=== PATIENT | female | born 1965 | race Two or more races ===

== ENCOUNTER 2016-10-30 17:54 | Emergency (ER) | payer SELFPAY ==
[~2016-10-30] VITALS: Ht 162.6 cm; Wt 61.2 kg
[2016-10-30] MEDS ORDERED: Famotidine 20 MG/ 2ML VIAL IVP ONE (18:15)
[2016-10-30] MEDS ORDERED: Morphine Sulfate 4mg/ml Inj IVP ONE (18:15)
[2016-10-30 18:35] LABS: BASOPHILS % (AUTO) 0.8 % (0.0-2.0); EOSINOPHILS % (AUTO) 0.2 % (0.0-3.0); LYMPHOCYTES % (AUTO) 31.9 % (20.0-45.0); MEAN CORPUSCULAR HEMOGLOBIN 30.7 PG (27.0-31.0); MEAN CORPUSCULAR HGB CONC 35.6 G/DL (32.0-36.0); MEAN CORPUSCULAR VOLUME 86 FL (80-99); MEAN PLATELET VOLUME 8.5 FL (6.5-10.1); MONOCYTES % (AUTO) 5.5 % (1.0-10.0); NEUTROPHILS % (AUTO) 61.6 % (45.0-75.0); PLATELET COUNT 276 K/UL (150-450); RED BLOOD COUNT 4.65 M/UL (4.20-5.40); WHITE BLOOD COUNT 9.9 K/UL (4.8-10.8)
[2016-10-30 18:47] LABS: INR 0.9 (0.9-1.1); PROTHROMBIN TIME 9.7 SEC (9.30-11.50)
[2016-10-30 18:51] LABS: TROPONIN I < 0.30 ng/mL (<=0.30)
[2016-10-30 18:56] LABS: ALANINE AMINOTRANSFERASE 16 U/L (3-33); ALBUMIN/GLOBULIN RATIO 1.3 (1.0-2.7); ANION GAP 21 (5-15); ASPARTATE AMINO TRANSFERASE 13 U/L (5-40); CALCIUM 9.5 mg/dL (8.6-10.2); CARBON DIOXIDE 21 mEQ/L (20-30); CHLORIDE 95 mEQ/L (98-107); CREATININE 0.8 mg/dL (0.5-0.9); GLOMERULAR FILTRATION RATE > 60 mL/min (>60); HEMOLYSIS 7; LIPASE 31 U/L (< 60); POTASSIUM 3.4 mEQ/L (3.4-4.9); SODIUM 137 mEQ/L (135-145); TOTAL PROTEIN 7.6 g/dL (6.6-8.7)
[2016-10-30 19:53] VITALS: BP 132/75
[2016-10-30 20:12] LABS: APPEARANCE,URINE CLEAR; KETONES,URINE 1+ (NEGATIVE); LEUKOCYTE ESTERASE ,URINE 1+ (NEGATIVE); NITRITE,URINE NEGATIVE (NEGATIVE); PH,URINE 7 (4.5-8.0); PROTEIN,URINE 2+ (NEGATIVE); UROBILINOGEN,URINE NORMAL MG/DL (0.0-1.0)
[2016-10-30 20:20] LABS: RBC,URINE 0-2 /HPF (0 - 2); SQUAMOUS EPITHELIAL CELL,UR FEW /LPF (NONE/OCC)
[2016-10-30 20:21] LABS: BACTERIA,URINE OCCASIONAL /HPF
[2016-10-30] MEDS ORDERED: BENTYL10 MG ORAL (21:43)
[2016-10-30] MEDS ORDERED: ZOFRAN ODT4 MG ORAL (21:43)
[2016-10-30] MEDS ORDERED: NORCO 5-325 TA1 EACH ORAL (21:43)
[2016-10-30 21:54] VITALS: BP 135/71
[2016-10-30 21:55] VITALS: BP 135/71
--- NOTE | 2016-10-31 10:31 | Diagnostic Imaging Report ---
Indication: Abdominal pain Technique: Continuous helical transaxial imaging of the abdomen and pelvis was obtained from the lung bases to the pubic symphysis during intravenous contrast administration. Coronal 2-D reformats were also obtained. Study obtained in a Siemens sensation [address] Total Dose length Product (DLP): [address] Dose Index Volume (CTDIvol): 18 mGy Comparison: None Findings: Lung bases are clear. The liver, gallbladder and spleen, pancreas, adrenal glands, kidneys are unremarkable. Mild calcified plaques noted within the aorta. Mild distention of some fluid. Bowel demonstrated. Findings could be due to mild enteritis. These correlate clinically. The appendix is normal. The uterus is heterogeneous in appearance with slight bulky contour suggestive of underlying fibroids. No hydronephrosis demonstrated. Urinary bladder is nondistended. There is a defect of the pars interarticularis at L5 bilaterally. Mild anterior subluxation of L5 relative to S1 noted. In pression: Suspect mild enteritis. Please correlate clinically. Suggestion of uterine fibroid. Ultrasound evaluation may be helpful. Atherosclerotic vascular disease L5 spondylolysis. Grade 1 spondylolisthesis L5 on S1. The CT scanner at [facility] is accredited by the [employer] and the scans are performed using dose optimization techniques as appropriate to a performed exam including Automatic Exposure control.
== END 2016-10-30 21:56 | disposition home or self-care (01) ==
LOC: EDBD 17:54 → EMR 19:38
DX: R10.9 Unspecified abdominal pain (principal)
CPT/HCPCS: 36415; 74177; 80053; 81003; 83690; 84484; 85025; 85610; 85730; 87086; 96360; 96374; 96375; 99284; J2270; J2405; Q9967; S0028